=== PATIENT | female | born 1970 | race African-American/Black ===

== ENCOUNTER 2024-01-16 17:23 | Inpatient (IN) | payer BC ==
[~2024-01-16] VITALS: Ht 160 cm; Wt 156.5 kg
[2024-01-16] MEDS: ACETAMINOPHEN 325 MG TAB PO ONE (19:27)
[2024-01-16] MEDS: SODIUM CHLORIDE 0.9% 1000ML 1,000 ML IV STA (19:49)
[2024-01-16 21:00] VITALS: TEMP 98.7
[2024-01-16] MEDS ORDERED: ONDANSETRON HCL INJ 2MG/ML 2ML 2 MG/ML VIAL IV PRN (21:30)
[2024-01-16 22:00] VITALS: PULSE 91; RESP 16
[2024-01-16] MEDS: LIDOCAINE HCL 1% LOCAL INJ 20 ML VIAL INJ STA (22:50)
[2024-01-16 23:16] VITALS: PULSE 90; RESP 18; O2SAT 100
[2024-01-17] VITALS (10 sets, daily range): BP systolic 122–165; BP diastolic 53–84; PULSE 66–98; RESP 18–23; TEMP 98.2–99.8; O2SAT 95–100
[2024-01-17 00:17] LABS: BASOPHILS # (AUTO) 0.1 (0.0-0.1); BASOPHILS % 0.3 % (0.0-1.0); EOSINOPHILS # (AUTO) 0.2 (0.0-0.4); EOSINOPHILS % 0.8 % (0.0-6.0); HEMATOCRIT 25.9 % (34.2-44.1); LYMPHOCYTES # (AUTO) 2.5 (1.0-3.2); LYMPHOCYTES % 8.6 % (18.0-39.1); MEAN CORPUSCULAR HEMOGLOBIN 27.2 pg (28-32); MEAN CORPUSCULAR HGB CONC 29.7 g/dL (31-35); MEAN CORPUSCULAR VOLUME 91.5 fL (81-99); MONOCYTES # (AUTO) 2.4 (0.2-0.8); MONOCYTES % 8.2 % (4.4-11.3); NEUTROPHILS # (AUTO) 23.3 (2.1-6.9); NEUTROPHILS % 80.1 % (38.7-80.0); PLATELET COUNT 555 x10e3/uL (140-360); RED BLOOD COUNT 2.83 x10e6/uL (3.6-5.1); RED CELL DISTRIBUTION WIDTH 14.7 % (11.7-14.4); WHITE BLOOD COUNT 29.07 x10e3/uL (4.8-10.8)
[2024-01-17] MEDS: SODIUM CHLORIDE 0.9% 1000ML 1,000 ML IV SCH (00:20)
[2024-01-17 01:01] LABS: ALBUMIN 1.9 g/dL (3.5-5.0); ALBUMIN/GLOBULIN RATIO 0.4 (0.8-2.0); ANION GAP 16.4 mmol/L (8-16); BILIRUBIN,TOTAL 0.4 mg/dL (0.2-1.2); CALCIUM 8.2 mg/dL (8.4-10.2); CREATININE, SERUM 3.02 mg/dL (0.57-1.11); POTASSIUM 4.4 mmol/L (3.5-5.1); TOTAL PROTEIN 7.2 g/dL (6.5-8.1)
[2024-01-17 01:15] LABS: HEMOGLOBIN 7.7 g/dL (12.0-16.0)
[2024-01-17] MEDS ORDERED: GLIPIZIDE5 MG PO (02:18)
[2024-01-17] MEDS ORDERED: MAG-OXIDE400 MG PO (02:18)
[2024-01-17] MEDS ORDERED: ATORVASTATIN CA40 MG PO (02:18)
[2024-01-17] MEDS ORDERED: AMLODIPINE BESY10 MG PO (02:18)
[2024-01-17] MEDS ORDERED: LISINOPRIL5 MG PO (02:18)
[2024-01-17] MEDS ORDERED: OZEMPIC2 MG/0.75 IJ (02:18)
[2024-01-17 04:50] LABS: LYMPHOCYTES % (MANUAL) 10 % (19-48); MONOCYTES % (MANUAL) 15 % (3.4-9.0); NEUTROPHILS % (MANUAL) 75 % (40-74); RBC MORPHOLOGY COMMENT ABNORMAL
[2024-01-17 04:52] LABS: TEAR DROP CELLS FEW
[2024-01-17 04:53] LABS: ANISOCYTOSIS MODE; BURR CELLS SLIGHT; HYPOCHROMASIA MODE; POIKILOCYTOSIS SLIGHT; POLYCHROMASIA FEW
[2024-01-17 04:54] LABS: ELLIPTOCYTE, RBC SLIGHT; PLATELET ESTIMATE ADEQUATE; PLATELET MORPHOLOGY COMMENT FEW GIANT
[2024-01-17 06:54] LABS: BASOPHILS # (AUTO) 0.1 (0.0-0.1); BASOPHILS % 0.3 % (0.0-1.0); EOSINOPHILS # (AUTO) 0.2 (0.0-0.4); EOSINOPHILS % 0.6 % (0.0-6.0); LYMPHOCYTES # (AUTO) 2.2 (1.0-3.2); LYMPHOCYTES % 6.9 % (18.0-39.1); MEAN CORPUSCULAR HEMOGLOBIN 27.5 pg (28-32); MEAN CORPUSCULAR HGB CONC 31.2 g/dL (31-35); MEAN CORPUSCULAR VOLUME 88.1 fL (81-99); MONOCYTES # (AUTO) 2.2 (0.2-0.8); MONOCYTES % 7.1 % (4.4-11.3); NEUTROPHILS # (AUTO) 25.9 (2.1-6.9); RED BLOOD COUNT 2.95 x10e6/uL (3.6-5.1); RED CELL DISTRIBUTION WIDTH 14.7 % (11.7-14.4); WHITE BLOOD COUNT 31.24 x10e3/uL (4.8-10.8)
[2024-01-17 07:07] LABS: ALBUMIN/GLOBULIN RATIO 0.4 (0.8-2.0); ANION GAP 16.5 mmol/L (8-16); BILIRUBIN,TOTAL 0.5 mg/dL (0.2-1.2); CALCIUM 8.3 mg/dL (8.4-10.2); CREATININE, SERUM 3.17 mg/dL (0.57-1.11); POTASSIUM 4.5 mmol/L (3.5-5.1); TOTAL PROTEIN 7.6 g/dL (6.5-8.1)
[2024-01-17 07:10] LABS: HEMOGLOBIN 8.1 g/dL (12.0-16.0); PLATELET COUNT 733 x10e3/uL (140-360)
[2024-01-17] MEDS ORDERED: DEXTROSE 50% SYRINGE 50 ML IV PRN (08:45)
[2024-01-17 09:04] LABS: BAND NEUTROPHILS % (MANUAL) 1 %; EOSINOPHILS % (MANUAL) 2 % (0-7); LYMPHOCYTES % (MANUAL) 14 % (19-48); MONOCYTES % (MANUAL) 7 % (3.4-9.0); NEUTROPHILS % (MANUAL) 76 % (40-74)
[2024-01-17 09:06] LABS: HYPOCHROMASIA SLIGHT; PLATELET ESTIMATE MARKEDLY INCREASED; PLATELET MORPHOLOGY COMMENT NORMAL
[2024-01-17] MEDS: INSULIN REGULAR, HUMAN 100 UNIT/1 ML SQ SCH (09:54)
[2024-01-17] MEDS ORDERED: ACETAMINOPHEN/CODEINE 300MG - 30MG TAB PO PRN (11:00)
[2024-01-17] MEDS ORDERED: LIDOCAINE HCL 2% LOCAL INJ 5 ML SDV VIAL INJ ONE (13:48)
[2024-01-17] MEDS ORDERED: PROPOFOL IV EMULSION 10 MG/ML 20 ML VIAL ONE ×2 (13:48→15:19)
[2024-01-17] MEDS ORDERED: FENTANYL CITRATE/PF 100MCG/2 ML INJ ONE ×2 (15:18→16:07)
[2024-01-17] MEDS ORDERED: ONDANSETRON HCL INJ 2MG/ML 2ML 2 MG/ML VIAL ONE (15:24)
[2024-01-17] MEDS ORDERED: METOCLOPRAMIDE HCL 10 MG/2ML VIAL ONE (15:24)
[2024-01-17] MEDS ORDERED: PHENYLEPHRINE HCL 1% 10 MG/ML VIAL ONE (15:38)
[2024-01-17] MEDS: LINEZOLID 600 MG/D5W 300ML 300 ML IV SCH (17:05)
[2024-01-17] MEDS: GLIPIZIDE 5 MG TAB PO SCH (17:06)
[2024-01-17] MEDS: CEFEPIME 2 GM in SODIUM CHLORIDE 0.9% 100 ML IV SCH (17:06)
[2024-01-18] VITALS (7 sets, daily range): BP systolic 119–143; BP diastolic 66–83; PULSE 80–100; RESP 18–20; TEMP 97.9–99.4; O2SAT 99–100
[2024-01-18] MEDS: HYDROCODONE/APAP 5MG-325MG TAB PO PRN (05:45)
[2024-01-18 07:01] LABS: BASOPHILS # (AUTO) 0.1 (0.0-0.1); BASOPHILS % 0.2 % (0.0-1.0); EOSINOPHILS # (AUTO) 0.3 (0.0-0.4); EOSINOPHILS % 0.9 % (0.0-6.0); LYMPHOCYTES # (AUTO) 3.4 (1.0-3.2); LYMPHOCYTES % 10.7 % (18.0-39.1); MEAN CORPUSCULAR HGB CONC 30.2 g/dL (31-35); MEAN CORPUSCULAR VOLUME 89.1 fL (81-99); MONOCYTES # (AUTO) 2.2 (0.2-0.8); NEUTROPHILS # (AUTO) 25.3 (2.1-6.9); NEUTROPHILS % 78.7 % (38.7-80.0); PLATELET COUNT 606 x10e3/uL (140-360); RED CELL DISTRIBUTION WIDTH 14.9 % (11.7-14.4); WHITE BLOOD COUNT 32.09 x10e3/uL (4.8-10.8)
[2024-01-18 07:10] LABS: HEMATOCRIT 20.5 % (34.2-44.1)
[2024-01-18 07:11] LABS: HEMOGLOBIN 6.2 g/dL (12.0-16.0)
[2024-01-18 07:42] LABS: ALBUMIN 1.7 g/dL (3.5-5.0); ALBUMIN/GLOBULIN RATIO 0.4 (0.8-2.0); ANION GAP 15.6 mmol/L (8-16); BILIRUBIN,TOTAL 0.3 mg/dL (0.2-1.2); CALCIUM 7.7 mg/dL (8.4-10.2); CREATININE, SERUM 3.86 mg/dL (0.57-1.11); POTASSIUM 4.6 mmol/L (3.5-5.1); TOTAL PROTEIN 6.5 g/dL (6.5-8.1)
[2024-01-18] MEDS: ATORVASTATIN 40 MG TAB PO SCH (08:32)
[2024-01-18] MEDS: AMLODIPINE BESYLATE 10 MG TAB PO SCH (08:32)
[2024-01-18] MEDS: MAGNESIUM OXIDE 400 MG TAB PO SCH (08:33)
[2024-01-18] MEDS: SODIUM CHLORIDE 0.9% 250ML 250 ML IV ONE (08:44)
[2024-01-18 09:34] LABS: CLARITY,URINE TURBID (CLEAR); COLOR,URINE YELLOW (YELLOW); GLUCOSE, URINE NEGATIVE (NEGATIVE); LEUKOCYTE ESTERASE ,URINE TRACE (NEGATIVE); NITRITE,URINE NEGATIVE (NEGATIVE); PH,URINE 5 (5 - 7); PROTEIN,URINE DIPSTICK >=300 (NEGATIVE)
[2024-01-18 09:35] LABS: BILIRUBIN,URINE NEGATIVE (NEGATIVE); KETONES,URINE TRACE (NEGATIVE); URINE UROBILINOGEN 0.2 mg/dL (0.2 - 1)
[2024-01-18 09:36] LABS: BACTERIA,URINE MANY /HPF; EPITHELIAL CELLS,URINE MANY /LPF; WBC,URINE (MAN) >50 /HPF (0-5)
[2024-01-18 09:54] LABS: SODIUM,URINE 24 mmol/L
[2024-01-18] MEDS: SODIUM BICARBONATE 650 MG TAB PO SCH (10:31)
[2024-01-18] MEDS: SODIUM BICARBONATE 8.4% VIAL 150 ML in STERILE WATER IV SOLN 1,000 ML IV SCH (10:35)
[2024-01-18 11:55] LABS: CREATININE,URINE RANDOM 213.19 mg/dL (47-110); TOTAL PROTEIN, URINE 171.8 mg/dL (1-14)
[2024-01-18 14:34] LABS: % IRON SATURATION 20 % (15-50); IRON 24 ug/dL (50-170); TOTAL IRON BINDING CAPACITY 118 ug/dL (261-478); TRANSFERRIN 84 mg/dL (180-382)
[2024-01-18 15:04] LABS: BAND NEUTROPHILS % (MANUAL) 4 %; EOSINOPHILS % (MANUAL) 1 % (0-7); LYMPHOCYTES % (MANUAL) 12 % (19-48); MONOCYTES % (MANUAL) 5 % (3.4-9.0); NEUTROPHILS % (MANUAL) 78 % (40-74); PLATELET ESTIMATE SLIGHTLY INCREASED; PLATELET MORPHOLOGY COMMENT NORMAL
[2024-01-18 15:05] LABS: HYPOCHROMASIA MARKED
[2024-01-18] MEDS: GLIPIZIDE 5 MG TAB PO SCH (16:39)
[2024-01-19] VITALS (8 sets, daily range): BP systolic 115–170; BP diastolic 61–88; PULSE 88–103; RESP 19–24; TEMP 97.9–98.8; O2SAT 98–100
[2024-01-19 06:39] LABS: BASOPHILS # (AUTO) 0.1 (0.0-0.1); BASOPHILS % 0.3 % (0.0-1.0); EOSINOPHILS # (AUTO) 0.4 (0.0-0.4); EOSINOPHILS % 1.9 % (0.0-6.0); HEMATOCRIT 25.8 % (34.2-44.1); HEMOGLOBIN 7.9 g/dL (12.0-16.0); LYMPHOCYTES # (AUTO) 2.7 (1.0-3.2); LYMPHOCYTES % 11.7 % (18.0-39.1); MEAN CORPUSCULAR HEMOGLOBIN 27.5 pg (28-32); MEAN CORPUSCULAR HGB CONC 30.6 g/dL (31-35); MEAN CORPUSCULAR VOLUME 89.9 fL (81-99); MONOCYTES # (AUTO) 1.5 (0.2-0.8); MONOCYTES % 6.4 % (4.4-11.3); NEUTROPHILS # (AUTO) 17.7 (2.1-6.9); PLATELET COUNT 475 x10e3/uL (140-360); RED BLOOD COUNT 2.87 x10e6/uL (3.6-5.1); RED CELL DISTRIBUTION WIDTH 15.2 % (11.7-14.4)
[2024-01-19 07:01] LABS: ALBUMIN 1.8 g/dL (3.5-5.0); ALBUMIN/GLOBULIN RATIO 0.4 (0.8-2.0); ANION GAP 15.3 mmol/L (8-16); BILIRUBIN,TOTAL 0.4 mg/dL (0.2-1.2); CALCIUM 7.6 mg/dL (8.4-10.2); CREATININE, SERUM 3.64 mg/dL (0.57-1.11); POTASSIUM 4.3 mmol/L (3.5-5.1); TOTAL PROTEIN 6.6 g/dL (6.5-8.1)
[2024-01-19] MEDS: SODIUM BICARBONATE 8.4% VIAL 150 ML in STERILE WATER IV SOLN 1,000 ML IV SCH (11:40)
[2024-01-20] VITALS (8 sets, daily range): BP systolic 137–155; BP diastolic 71–90; PULSE 84–102; RESP 18–21; TEMP 97–98.5; O2SAT 97–100
[2024-01-20] MEDS: CEFEPIME 2 GM in SODIUM CHLORIDE 0.9% 100 ML IV SCH (06:26)
[2024-01-20 07:21] LABS: BASOPHILS # (AUTO) 0.1 (0.0-0.1); BASOPHILS % 0.3 % (0.0-1.0); EOSINOPHILS # (AUTO) 0.4 (0.0-0.4); EOSINOPHILS % 2.1 % (0.0-6.0); HEMATOCRIT 28.9 % (34.2-44.1); HEMOGLOBIN 8.8 g/dL (12.0-16.0); LYMPHOCYTES % 11.2 % (18.0-39.1); MEAN CORPUSCULAR HEMOGLOBIN 27.2 pg (28-32); MEAN CORPUSCULAR HGB CONC 30.4 g/dL (31-35); MEAN CORPUSCULAR VOLUME 89.2 fL (81-99); MONOCYTES # (AUTO) 1.4 (0.2-0.8); NEUTROPHILS # (AUTO) 13.5 (2.1-6.9); NEUTROPHILS % 76.7 % (38.7-80.0); PLATELET COUNT 488 x10e3/uL (140-360); RED BLOOD COUNT 3.24 x10e6/uL (3.6-5.1); RED CELL DISTRIBUTION WIDTH 14.9 % (11.7-14.4); WHITE BLOOD COUNT 17.56 x10e3/uL (4.8-10.8)
[2024-01-20 08:01] LABS: CALCIUM 7.9 mg/dL (8.4-10.2); CREATININE, SERUM 2.9 mg/dL (0.57-1.11)
[2024-01-20] MEDS: Morphine 4mg INJECTION 4 MG/ML INJ IV PRN (13:36)
[2024-01-20] MEDS: ONDANSETRON HCL INJ 2MG/ML 2ML 2 MG/ML VIAL IV PRN (13:36)
[2024-01-20] MEDS: LACTOBACILLUS ACIDOPHILUS CAPSULE PO SCH (15:04)
[2024-01-20] MEDS: CEFTRIAXONE 2 GM in SODIUM CHLORIDE 0.9% 100 ML IV SCH (16:46)
[2024-01-21] VITALS (8 sets, daily range): BP systolic 127–163; BP diastolic 60–98; PULSE 88–98; RESP 17–21; TEMP 97.5–98.3; O2SAT 98–100
[2024-01-21 05:45] LABS: BASOPHILS # (AUTO) 0.1 (0.0-0.1); BASOPHILS % 0.4 % (0.0-1.0); EOSINOPHILS # (AUTO) 0.4 (0.0-0.4); EOSINOPHILS % 1.9 % (0.0-6.0); HEMATOCRIT 27.8 % (34.2-44.1); HEMOGLOBIN 8.4 g/dL (12.0-16.0); LYMPHOCYTES # (AUTO) 2.1 (1.0-3.2); LYMPHOCYTES % 11.1 % (18.0-39.1); MEAN CORPUSCULAR HEMOGLOBIN 27.2 pg (28-32); MEAN CORPUSCULAR HGB CONC 30.2 g/dL (31-35); MONOCYTES # (AUTO) 1.5 (0.2-0.8); MONOCYTES % 8.2 % (4.4-11.3); NEUTROPHILS # (AUTO) 14.4 (2.1-6.9); NEUTROPHILS % 77.3 % (38.7-80.0); PLATELET COUNT 498 x10e3/uL (140-360); RED BLOOD COUNT 3.09 x10e6/uL (3.6-5.1); RED CELL DISTRIBUTION WIDTH 14.9 % (11.7-14.4)
[2024-01-21 06:06] LABS: ANION GAP 15.2 mmol/L (8-16); CALCIUM 7.9 mg/dL (8.4-10.2); CREATININE, SERUM 2.6 mg/dL (0.57-1.11); POTASSIUM 4.2 mmol/L (3.5-5.1)
[2024-01-21] MEDS ORDERED: SODIUM BICARBONATE 650 MG TAB PO SCH (10:15)
[2024-01-22] VITALS (7 sets, daily range): BP systolic 124–151; BP diastolic 62–83; PULSE 87–99; RESP 17–19; TEMP 97.7–99.2; O2SAT 98–100
[2024-01-22] MEDS: SODIUM BICARBONATE 650 MG TAB PO SCH (09:50)
[2024-01-22] MEDS: NYSTATIN SUSPENSION 5 ML UDC PO SCH (18:07)
[2024-01-23] VITALS (10 sets, daily range): BP systolic 143–165; BP diastolic 65–83; PULSE 82–101; RESP 17–20; TEMP 98.1–99.1; O2SAT 99–100
[2024-01-23 06:19] LABS: BASOPHILS # (AUTO) 0.1 (0.0-0.1); BASOPHILS % 0.3 % (0.0-1.0); EOSINOPHILS # (AUTO) 0.3 (0.0-0.4); EOSINOPHILS % 2.1 % (0.0-6.0); HEMATOCRIT 28.4 % (34.2-44.1); HEMOGLOBIN 8.5 g/dL (12.0-16.0); LYMPHOCYTES # (AUTO) 2.6 (1.0-3.2); LYMPHOCYTES % 16.1 % (18.0-39.1); MEAN CORPUSCULAR HEMOGLOBIN 27.2 pg (28-32); MEAN CORPUSCULAR HGB CONC 29.9 g/dL (31-35); MONOCYTES # (AUTO) 1.4 (0.2-0.8); MONOCYTES % 8.5 % (4.4-11.3); NEUTROPHILS # (AUTO) 11.4 (2.1-6.9); NEUTROPHILS % 71.9 % (38.7-80.0); PLATELET COUNT 452 x10e3/uL (140-360); RED BLOOD COUNT 3.12 x10e6/uL (3.6-5.1); RED CELL DISTRIBUTION WIDTH 14.6 % (11.7-14.4); WHITE BLOOD COUNT 15.83 x10e3/uL (4.8-10.8)
[2024-01-23 06:44] LABS: ALBUMIN 2.2 g/dL (3.5-5.0); ALBUMIN/GLOBULIN RATIO 0.5 (0.8-2.0); ANION GAP 15.5 mmol/L (8-16); BILIRUBIN,TOTAL 0.2 mg/dL (0.2-1.2); CALCIUM 8.1 mg/dL (8.4-10.2); CREATININE, SERUM 2.42 mg/dL (0.57-1.11); POTASSIUM 4.5 mmol/L (3.5-5.1); TOTAL PROTEIN 6.9 g/dL (6.5-8.1)
[2024-01-23] MEDS: HYDRALAZINE HCL 20 MG/ML VIAL IV PRN (12:18)
[2024-01-23] MEDS: ACETAMINOPHEN 325 MG TAB PO PRN (13:59)
[2024-01-24 04:00] VITALS: BP 152/62; PULSE 89; RESP 18; TEMP 98.8; O2SAT 100
[2024-01-24 06:06] LABS: BASOPHILS # (AUTO) 0.1 (0.0-0.1); BASOPHILS % 0.4 % (0.0-1.0); EOSINOPHILS # (AUTO) 0.3 (0.0-0.4); EOSINOPHILS % 2.3 % (0.0-6.0); HEMATOCRIT 29.7 % (34.2-44.1); HEMOGLOBIN 8.9 g/dL (12.0-16.0); LYMPHOCYTES # (AUTO) 2.2 (1.0-3.2); LYMPHOCYTES % 16.6 % (18.0-39.1); MEAN CORPUSCULAR HEMOGLOBIN 27.2 pg (28-32); MEAN CORPUSCULAR VOLUME 90.8 fL (81-99); MONOCYTES # (AUTO) 1.2 (0.2-0.8); MONOCYTES % 9.1 % (4.4-11.3); NEUTROPHILS # (AUTO) 9.4 (2.1-6.9); NEUTROPHILS % 70.8 % (38.7-80.0); PLATELET COUNT 421 x10e3/uL (140-360); RED BLOOD COUNT 3.27 x10e6/uL (3.6-5.1); RED CELL DISTRIBUTION WIDTH 14.4 % (11.7-14.4); WHITE BLOOD COUNT 13.26 x10e3/uL (4.8-10.8)
[2024-01-24 06:27] LABS: ANION GAP 16.4 mmol/L (8-16); CALCIUM 8.7 mg/dL (8.4-10.2); CREATININE, SERUM 2.19 mg/dL (0.57-1.11); PHOSPHORUS 3.8 MG/DL (2.3-4.7); POTASSIUM 4.4 mmol/L (3.5-5.1)
[2024-01-24 07:37] VITALS: BP 144/75; PULSE 87; RESP 18; TEMP 98.3; O2SAT 99
[2024-01-24 08:44] VITALS: BP 144/75; PULSE 87; RESP 18; TEMP 98.3; O2SAT 99
[2024-01-24 11:35] VITALS: BP 160/88; PULSE 96; RESP 18; TEMP 98; O2SAT 100
[2024-01-24 15:33] VITALS: BP 147/77; PULSE 92; RESP 18; TEMP 98.4; O2SAT 99
[2024-01-24 20:00] VITALS: BP 160/82; PULSE 70; RESP 18; TEMP 98.5; O2SAT 99
[2024-01-25] VITALS: BP 161/78; PULSE 88; RESP 18; TEMP 99; O2SAT 98
[2024-01-25 04:00] VITALS: BP 160/85; PULSE 89; RESP 18; TEMP 97; O2SAT 97
[2024-01-25 06:02] LABS: ANION GAP 14.6 mmol/L (8-16); CALCIUM 7.9 mg/dL (8.4-10.2); CREATININE, SERUM 2.49 mg/dL (0.57-1.11); POTASSIUM 4.6 mmol/L (3.5-5.1)
[2024-01-25 08:24] VITALS: BP 180/81; PULSE 85; RESP 18; TEMP 99.1; O2SAT 100
[2024-01-25 11:52] VITALS: BP 135/65; PULSE 88; RESP 16; TEMP 98.6; O2SAT 100
[2024-01-25] MEDS ORDERED: ACIDOPHILUS1 EAC1 PO (13:30)
[2024-01-25] MEDS ORDERED: CEPHALEXIN500 MG PO (13:30)
[2024-01-25] MEDS ORDERED: GLIPIZIDE5 MG PO (13:30)
[2024-01-25] MEDS ORDERED: EPOETIN ALFA-EPBX 10,000 UNIT/ML VIAL SC SCH (13:30)
== END 2024-01-25 15:30 | disposition home or self-care (01) | DRG 853 ==
LOC: ER 17:56 → ERHOLD 21:24 → MED/SURG3 01-17
PROVIDERS: ADMIT Internal Medicine; ATTEND Internal Medicine
PROC: 3E0333Z Introduction of Anti-inflammatory into Peripheral Vein, Percutaneous Approach (ICD-10-PCS; 2024-01-16)
PROC: 0HBU0ZZ Excision of Left Breast, Open Approach (ICD-10-PCS; principal; 2024-01-17 15:17)
PROC: 30233N1 Transfusion of Nonautologous Red Blood Cells into Peripheral Vein, Percutaneous Approach (ICD-10-PCS; 2024-01-18)
DX: A41.81 Sepsis due to Enterococcus (principal); N17.0 Acute kidney failure with tubular necrosis; E87.20 Acidosis, unspecified; Z68.44 Body mass index [BMI] 60.0-69.9, adult; D63.1 Anemia in chronic kidney disease; E66.01 Morbid (severe) obesity due to excess calories; N61.1 Abscess of the breast and nipple; E11.65 Type 2 diabetes mellitus with hyperglycemia; E11.22 Type 2 diabetes mellitus with diabetic chronic kidney disease; I12.9 Hypertensive chronic kidney disease with stage 1 through stage 4 chronic kidney disease, or unspecified chronic kidney disease; N18.32 Chronic kidney disease, stage 3b; E78.00 Pure hypercholesterolemia, unspecified; B96.1 Klebsiella pneumoniae [K. pneumoniae] as the cause of diseases classified elsewhere; R53.81 Other malaise; T38.3X6A Underdosing of insulin and oral hypoglycemic [antidiabetic] drugs, initial encounter; Z91.128 Patient's intentional underdosing of medication regimen for other reason; Z79.85 Long-term (current) use of injectable non-insulin antidiabetic drugs; Z79.84 Long term (current) use of oral hypoglycemic drugs; Z82.49 Family history of ischemic heart disease and other diseases of the circulatory system; Z83.3 Family history of diabetes mellitus
CPT/HCPCS: 36415; 76770; 80048; 80053; 81001; 81025; 82570; 82948; 83036; 83540; 84100; 84156; 84300; 84466; 85025; 86850; 86900; 86920; 87071; 87075; 87186; 87205; 88304; 94799; 96372; 97606; 99252; 99284; J0360; J0692; J0696; J2003; J2020; J2270; J2371; J2405; J2543; J2765; J7030; J7050; P9016

== ENCOUNTER → 2024-01-28 | Outpatient (REF) | payer BC ==
[~2024-01-28] MED LIST: ACIDOPHILUS1 EAC1 PO; AMLODIPINE BESY10 MG PO; ATORVASTATIN CA40 MG PO; CEPHALEXIN500 MG PO; GLIPIZIDE5 MG PO; LISINOPRIL5 MG PO; MAG-OXIDE400 MG PO; OZEMPIC2 MG/0.75 IJ
== END ==
LOC: WCC 09:15
PROVIDERS: ATTEND Internal Medicine Infectious Disease
DX: S21.002D Unspecified open wound of left breast, subsequent encounter (principal)

== ENCOUNTER → 2024-01-31 | Outpatient (REF) | payer BC ==
[~2024-01-31] MED LIST changes: +LIDOCAINE VISC 2% SOLN 15 ML UDC ONE; +LIDOCAINE/PRILOCAINE 2.5-2.5% KIT ONE
== END ==
LOC: WCC 09:27
PROVIDERS: ATTEND Internal Medicine Infectious Disease
DX: S21.002D Unspecified open wound of left breast, subsequent encounter (principal); E11.22 Type 2 diabetes mellitus with diabetic chronic kidney disease; I12.9 Hypertensive chronic kidney disease with stage 1 through stage 4 chronic kidney disease, or unspecified chronic kidney disease; N18.30 Chronic kidney disease, stage 3 unspecified

== ENCOUNTER → 2024-02-03 | Outpatient (REF) | payer BC | LOC: WCC 12:27 | PROVIDERS: ATTEND Internal Medicine Infectious Disease | DX: S21.002D Unspecified open wound of left breast, subsequent encounter (principal) ==

== ENCOUNTER → 2024-02-05 | Outpatient (REF) | payer BC | LOC: WCC 09:00 | PROVIDERS: ATTEND Internal Medicine Infectious Disease | DX: S21.002D Unspecified open wound of left breast, subsequent encounter (principal) ==

== ENCOUNTER → 2024-02-07 | Outpatient (REF) | payer BC | LOC: WCC 09:16 | PROVIDERS: ATTEND Nurse Practitioner Family | DX: E11.22 Type 2 diabetes mellitus with diabetic chronic kidney disease (principal); N18.30 Chronic kidney disease, stage 3 unspecified; S21.002D Unspecified open wound of left breast, subsequent encounter; I10 Essential (primary) hypertension ==

== ENCOUNTER → 2024-02-10 | Outpatient (REF) | payer BC ==
[~2024-02-10] MED LIST changes: -LIDOCAINE VISC 2% SOLN 15 ML UDC ONE; -LIDOCAINE/PRILOCAINE 2.5-2.5% KIT ONE
== END ==
LOC: WCC 08:00
PROVIDERS: ATTEND Internal Medicine Infectious Disease
DX: S21.002D Unspecified open wound of left breast, subsequent encounter (principal)

== ENCOUNTER → 2024-02-12 | Outpatient (REF) | payer BC | LOC: WCC 08:28 | PROVIDERS: ATTEND Internal Medicine Infectious Disease | DX: S21.002D Unspecified open wound of left breast, subsequent encounter (principal) ==

== ENCOUNTER → 2024-02-18 | Outpatient (REF) | payer BC | LOC: WCC 08:51 | PROVIDERS: ATTEND Internal Medicine Infectious Disease | DX: S21.002D Unspecified open wound of left breast, subsequent encounter (principal) ==

== ENCOUNTER → 2024-02-21 | Outpatient (REF) | payer BC | LOC: WCC 08:36 | PROVIDERS: ATTEND Internal Medicine Infectious Disease | DX: S21.002D Unspecified open wound of left breast, subsequent encounter (principal) ==

== ENCOUNTER → 2024-02-24 | Outpatient (REF) | payer BC | LOC: WCC 11:35 | PROVIDERS: ATTEND Internal Medicine Infectious Disease | DX: S21.002D Unspecified open wound of left breast, subsequent encounter (principal) ==

== ENCOUNTER → 2024-02-27 | Outpatient (REF) | payer BC | LOC: WCC 11:16 | PROVIDERS: ATTEND Plastic Surgery | DX: S21.002D Unspecified open wound of left breast, subsequent encounter (principal) ==

== ENCOUNTER → 2024-02-28 | Outpatient (REF) | payer BC | LOC: WCC 10:49 | PROVIDERS: ATTEND Plastic Surgery | DX: S21.002D Unspecified open wound of left breast, subsequent encounter (principal) ==

== ENCOUNTER → 2024-03-02 | Outpatient (REF) | payer BC | LOC: WCC 08:28 | PROVIDERS: ATTEND Plastic Surgery | DX: S21.002D Unspecified open wound of left breast, subsequent encounter (principal) ==

== ENCOUNTER → 2024-03-04 | Outpatient (REF) | payer BC | LOC: WCC 09:03 | PROVIDERS: ATTEND Plastic Surgery | DX: S21.002D Unspecified open wound of left breast, subsequent encounter (principal) ==

== ENCOUNTER → 2024-03-06 | Outpatient (REF) | payer BC | LOC: WCC 08:39 | PROVIDERS: ATTEND Plastic Surgery | DX: S21.002D Unspecified open wound of left breast, subsequent encounter (principal) ==

== ENCOUNTER → 2024-03-09 | Outpatient (REF) | payer BC | LOC: WCC 08:30 | PROVIDERS: ATTEND Plastic Surgery | DX: S21.002D Unspecified open wound of left breast, subsequent encounter (principal); E11.22 Type 2 diabetes mellitus with diabetic chronic kidney disease; N18.30 Chronic kidney disease, stage 3 unspecified; I10 Essential (primary) hypertension ==

== ENCOUNTER → 2024-03-11 | Outpatient (REF) | payer BC | LOC: WCC 08:41 | PROVIDERS: ATTEND Plastic Surgery | DX: S21.002D Unspecified open wound of left breast, subsequent encounter (principal) ==

== ENCOUNTER → 2024-03-13 | Outpatient (REF) | payer BC | LOC: WCC 08:31 | PROVIDERS: ATTEND Internal Medicine Infectious Disease | DX: S21.002D Unspecified open wound of left breast, subsequent encounter (principal) ==

== ENCOUNTER → 2024-03-16 | Outpatient (REF) | payer BC | LOC: WCC 08:43 | PROVIDERS: ATTEND Internal Medicine Infectious Disease | DX: S21.002D Unspecified open wound of left breast, subsequent encounter (principal) ==

== ENCOUNTER → 2024-03-20 | Outpatient (REF) | payer BC | LOC: WCC 08:41 | PROVIDERS: ATTEND Internal Medicine Infectious Disease | DX: S21.002D Unspecified open wound of left breast, subsequent encounter (principal) ==

== ENCOUNTER → 2024-03-23 | Outpatient (REF) | payer BC | LOC: WCC 08:42 | PROVIDERS: ATTEND Internal Medicine Infectious Disease | DX: S21.002D Unspecified open wound of left breast, subsequent encounter (principal) ==

== ENCOUNTER → 2024-03-25 | Outpatient (REF) | payer BC | LOC: WCC 08:41 | PROVIDERS: ATTEND Internal Medicine Infectious Disease | DX: S21.002D Unspecified open wound of left breast, subsequent encounter (principal) ==

== ENCOUNTER → 2024-03-27 | Outpatient (REF) | payer BC | LOC: WCC 08:43 | PROVIDERS: ATTEND Internal Medicine Infectious Disease | DX: S21.002D Unspecified open wound of left breast, subsequent encounter (principal) ==

== ENCOUNTER 2024-04-07 11:17 | Emergency (ER) | payer BC ==
[~2024-04-07] VITALS: Ht 167.6 cm; Wt 140.6 kg
[2024-04-07 12:45] VITALS: TEMP 98.7
[2024-04-07 13:57] LABS: BASOPHILS % 0.3 % (0.0-1.0); EOSINOPHILS # (AUTO) 0.2 (0.0-0.4); HEMATOCRIT 28.9 % (34.2-44.1); HEMOGLOBIN 8.8 g/dL (12.0-16.0); LYMPHOCYTES # (AUTO) 2.2 (1.0-3.2); LYMPHOCYTES % 14.7 % (18.0-39.1); MEAN CORPUSCULAR HEMOGLOBIN 28.1 pg (28-32); MEAN CORPUSCULAR HGB CONC 30.4 g/dL (31-35); MEAN CORPUSCULAR VOLUME 92.3 fL (81-99); MONOCYTES # (AUTO) 0.9 (0.2-0.8); MONOCYTES % 5.9 % (4.4-11.3); NEUTROPHILS # (AUTO) 11.6 (2.1-6.9); NEUTROPHILS % 77.7 % (38.7-80.0); PLATELET COUNT 390 x10e3/uL (140-360); RED BLOOD COUNT 3.13 x10e6/uL (3.6-5.1); RED CELL DISTRIBUTION WIDTH 16.6 % (11.7-14.4); WHITE BLOOD COUNT 14.97 x10e3/uL (4.8-10.8)
[2024-04-07 14:36] LABS: ALBUMIN 3.3 g/dL (3.5-5.0); ALBUMIN/GLOBULIN RATIO 0.6 (0.8-2.0); ANION GAP 13.9 mmol/L (8-16); BILIRUBIN,TOTAL 0.3 mg/dL (0.2-1.2); CREATININE, SERUM 2.5 mg/dL (0.57-1.11); POTASSIUM 4.9 mmol/L (3.5-5.1); TOTAL PROTEIN 8.8 g/dL (6.5-8.1)
[2024-04-07 15:04] VITALS: PULSE 84; RESP 16; O2SAT 99
== END 2024-04-07 15:05 | disposition home or self-care (01) ==
LOC: ER 13:03
DX: I12.9 Hypertensive chronic kidney disease with stage 1 through stage 4 chronic kidney disease, or unspecified chronic kidney disease (principal); E11.22 Type 2 diabetes mellitus with diabetic chronic kidney disease; N18.4 Chronic kidney disease, stage 4 (severe); Z80.51 Family history of malignant neoplasm of kidney; Z80.1 Family history of malignant neoplasm of trachea, bronchus and lung
CPT/HCPCS: 36415; 80053; 85025; 93005; 99283